=== PATIENT | male | born 2000 | race Caucasian/White ===

== ENCOUNTER 2022-05-03 14:47 | Emergency (ER) | payer BC ==
[2022-05-03 16:11] LABS: HEMOGLOBIN 16.5 gm/dl (14.0-17.5); RED BLOOD COUNT 5.07 M/UL (4.20-5.50); WHITE BLOOD COUNT 10.3 K/UL (4.5-11.0)
[2022-05-03 16:30] LABS: BUN/CREATININE RATIO 10 (0-10)
== END 2022-05-03 18:42 | disposition home or self-care (01) ==
LOC: ER1 14:47
PROVIDERS: Emergency Medicine
DX: R10.9 Unspecified abdominal pain (principal); R19.7 Diarrhea, unspecified; R10.811 Right upper quadrant abdominal tenderness; R00.2 Palpitations; K13.0 Diseases of lips; F17.290 Nicotine dependence, other tobacco product, uncomplicated; Z20.822 Contact with and (suspected) exposure to COVID-19
CPT/HCPCS: 80053; 81001; 83690; 85025; 96374; 96375; 99284; J1200; J2930; U0002